=== PATIENT | female | born 1975 | race Caucasian/White ===

== ENCOUNTER 2022-01-19 14:38 | Outpatient (CLI) | payer BC, SELFPAY ==
[2022-01-19 11:26] LABS: Cholesterol* 224 mg/dL (90-199); HDL Cholesterol* 84 mg/dL (>=50); LDL Cholesterol Calculated 108 mg/dL (<100); Triglycerides* 162 mg/dL (40-149)
== END 2022-01-19 14:39 | disposition home or self-care (01) ==
PROVIDERS: PCP Family Medicine; Visit Provider Family Medicine
DX: Z13.6 Encounter for screening for cardiovascular disorders (principal)
CPT/HCPCS: 80061

== ENCOUNTER 2022-03-04 14:47 | Outpatient (CLI) | payer BC, SELFPAY ==
--- NOTE | 2022-03-04 15:00 | CRLHL7_ITS ---
For Patients: As a result of the Century Cures Act, medical imaging exams and procedure reports are released immediately into your electronic medical record. You may view this report before your referring provider. If you have questions, please contact your health care provider. BILATERAL SCREENING MAMMOGRAM WITH COMPUTER-AIDED DETECTION AND TOMOSYNTHESIS TECHNIQUE: CC and MLO views were obtained. These mammographic images have been obtained using full-field digital technique. These mammographic images were interpreted with the benefit of computer-aided detection. Breast Tomosynthesis was used in this interpretation. COMPARISON FILM: 02/19/21, 01/29/20, 01/13/19. FINDINGS: The breasts are heterogeneously dense, which may obscure small masses IMPRESSION: There is no radiographic evidence for malignancy. ASSESSMENT: BI-RADS Category 1: Negative RECOMMENDATION: Routine screening mammogram in 1 year. A lay language report of this examination will be provided to the patient. Camden Oleary M.D. Diagnostic Radiologist [email or web address] JASSON/Dictated by: Camden Oleary MD @ 03/06/2022 8:27:00 AM (Electronically Signed)
== END 2022-03-04 14:48 | disposition home or self-care (01) ==
LOC: MAMMO 14:48
PROVIDERS: PCP Family Medicine; Visit Provider Family Medicine
DX: Z12.31 Encounter for screening mammogram for malignant neoplasm of breast (principal); R92.2 Inconclusive mammogram
CPT/HCPCS: 77063; 77067

== ENCOUNTER 2023-01-21 08:07 | Outpatient (CLI) | payer BC, SELFPAY | END 2023-01-21 08:08 | disposition home or self-care (01) | LOC: NFLDREF 01-22 07:34 | PROVIDERS: PCP Family Medicine; Referring Provider Family Medicine; Visit Provider Family Medicine | DX: E78.5 Hyperlipidemia, unspecified (principal) | CPT/HCPCS: 80061 ==

== ENCOUNTER 2023-02-15 10:10 | Outpatient (CLI) | payer BC, SELFPAY ==
--- NOTE | 2023-02-15 11:35 | W.ANESCHARGE ---
Anesthesia Charges Start Date/Time Anesthesia Start Date: 02/15/23 Anesthesia Start Time: 11:10 Stop Date/Time Anesthesia Stop Date: 02/15/23 Anesthesia Stop Time: 11:35
== END 2023-02-15 10:11 | disposition home or self-care (01) ==
LOC: OP CLINIC 10:11
PROVIDERS: PCP Family Medicine; Visit Provider Surgery
DX: Z12.11 Encounter for screening for malignant neoplasm of colon (principal); K57.30 Diverticulosis of large intestine without perforation or abscess without bleeding
CPT/HCPCS: 45378; 812; J2704

== ENCOUNTER 2023-03-25 08:13 | Outpatient (CLI) | payer BC, SELFPAY ==
--- NOTE | 2023-03-25 08:15 | CRLHL7_ITS ---
For Patients: As a result of the Century Cures Act, medical imaging exams and procedure reports are released immediately into your electronic medical record. You may view this report before your referring provider. If you have questions, please contact your health care provider. BILATERAL SCREENING MAMMOGRAM WITH COMPUTER-AIDED DETECTION AND TOMOSYNTHESIS TECHNIQUE: CC and MLO views were obtained. These mammographic images have been obtained using full-field digital technique. These mammographic images were interpreted with the benefit of computer-aided detection. Breast Tomosynthesis was used in this interpretation. COMPARISON FILM: 03/04/22, 02/19/21, 01/29/20. FINDINGS: The breasts are heterogeneously dense, which may obscure small masses IMPRESSION: There is no radiographic evidence for malignancy. ASSESSMENT: BI-RADS Category 1: Negative RECOMMENDATION: Routine screening mammogram in 1 year. A lay language report of this examination will be provided to the patient. Camden Oleary M.D. Diagnostic Radiologist [email or web address] JASSON/Dictated by: Camden Oleary MD @ 03/25/2023 9:04:00 AM (Electronically Signed)
== END 2023-03-25 08:14 | disposition home or self-care (01) ==
LOC: MAMMO 08:13
PROVIDERS: PCP Family Medicine; Visit Provider Family Medicine
DX: Z12.31 Encounter for screening mammogram for malignant neoplasm of breast (principal); R92.2 Inconclusive mammogram
CPT/HCPCS: 77063; 77067

== ENCOUNTER 2023-05-25 13:17 | Outpatient (CLI) | payer BC, SELFPAY | END 2023-05-25 13:18 | disposition home or self-care (01) | LOC: NFLDREF 13:19 | PROVIDERS: PCP Family Medicine; Visit Provider Family Medicine | DX: F41.1 Generalized anxiety disorder (principal) | CPT/HCPCS: 84443 ==

== ENCOUNTER 2023-06-17 10:11 | Outpatient (CLI) | payer BC, SELFPAY | END 2023-06-17 10:12 | disposition home or self-care (01) | LOC: NFLDREF 07-02 07:36 | PROVIDERS: PCP Family Medicine; Referring Provider Family Medicine; Visit Provider Physician Assistant | DX: N95.1 Menopausal and female climacteric states (principal) | CPT/HCPCS: 83001 ==